=== PATIENT | female | born 1990 | race Caucasian/White ===

== ENCOUNTER 2022-06-22 14:38 | Outpatient (CLI) | payer BC, SELFPAY ==
--- NOTE | ~2022-06-22 | US_ITS ---
US axilla RT 06/22/2022 15:30 Indication: Right axillary swelling Procedure: High-resolution ultrasound of the right axilla Comparison: No prior studies for comparison. Findings: There is a lymph node in the right axilla containing normal fatty hilum measuring 1.5 x 1.3 x 0.6 cm. no other masses are identified. Impression: 1: Right axillary lymph node with normal fatty hilum measuring up to 1.5 cm, likely reactive. BI-RADS CATEGORY 2 - BENIGN FINDINGS Reviewed, dictated and finalized at location A. Impression: 1: Right axillary lymph node with normal fatty hilum measuring up to 1.5 cm, li abrahan reactive. BI-RADS CATEGORY 2 - BENIGN FINDINGS
== END 2022-06-22 14:39 | disposition home or self-care (01) ==
PROVIDERS: Visit Provider Obstetrics & Gynecology
DX: M79.89 Other specified soft tissue disorders (principal)
CPT/HCPCS: 76882